=== PATIENT | female | born 1970 | race Hispanic/Latino ===

== ENCOUNTER 2019-04-16 19:44 | Emergency (ER) | payer SELFPAY ==
[2019-04-16 20:56] LABS: BASOPHILS % (AUTO) 0.7 % (0.0-5.0); EOSINOPHILS % (AUTO) 0.6 % (0.0-8.0); HEMATOCRIT 40.7 % (36-48); LYMPHOCYTES % (AUTO) 24.4 % (21.0-51.0); MEAN CORPUSCULAR HEMOGLOBIN 25.3 pg (27.0-33.0); MEAN CORPUSCULAR HGB CONC 32.1 g/dL (32.0-36.0); MONOCYTES % (AUTO) 5.8 % (3.0-13.0); NEUTROPHILS % (AUTO) 68.5 % (40.0-77.0); PLATELET COUNT (AUTO) 274 K/uL (130-400); RED BLOOD CELL COUNT(AUTO) 5.16 MIL/uL (4.00-5.50); RED CELL DISTRIBUTION WIDTH 16.5 % (11.0-15.5); WHITE BLOOD COUNT (AUTO) 12.3 K/uL (4.8-10.8)
[2019-04-16 21:17] LABS: CREATININE 0.7 mg/dL (0.5-1.5); POTASSIUM 3.8 mmol/L (3.5-5.1)
[2019-04-16 21:22] LABS: ALBUMIN 3.6 g/dL (3.5-5.0); BILIRUBIN,TOTAL 0.3 mg/dL (0.2-1.0); TOTAL PROTEIN, SERUM 8.4 g/dL (6.0-8.3)
[2019-04-16 22:15] LABS: APPEARANCE,URINE Clear (CLEAR); BILIRUBIN,URINE Negative (NEGATIVE); COLOR,URINE Yellow (YELLOW); GLUCOSE, URINE (UA) Negative (NEGATIVE); KETONES,URINE Negative (NEGATIVE); LEUKOCYTE ESTERASE ,URINE Negative (NEGATIVE); NITRATE,URINE Negative (NEGATIVE); OCCULT BLOOD,URINE Negative (NEGATIVE); PROTEIN,URINE POS 1+ mg/dL (NEGATIVE); UROBILINOGEN,URINE 0.2 mg/dL (0.2-1.0)
[2019-04-16] MEDS ORDERED: ONDANSETRON HCL 4 MG/2 ML VIAL ONE (22:17)
[2019-04-16] MEDS ORDERED: MORPHINE SULFATE 4 MG/1ML SYG ONE (22:17)
[2019-04-16 22:19] LABS: AMPHET/METH SCREEN,URINE NEGATIVE (NEGATIVE); BARBITURATE SCREEN, URINE NEGATIVE (NEGATIVE); BENZODIAZEPINES SCREEN,URINE NEGATIVE (NEGATIVE); CANNABINOID SCREEN,URINE NEGATIVE (NEGATIVE); COCAINE SCREEN,URINE NEGATIVE (NEGATIVE); OPIATE SCREEN,URINE NEGATIVE (NEGATIVE); PHENCYCLIDINE SCREEN,URINE NEGATIVE (NEGATIVE)
[2019-04-16 22:38] LABS: BACTERIA,URINE Few /HPF (None Seen); RBC,URINE 0-1 /HPF (0-1); WBC,URINE 0-1 /HPF (0-1)
== END 2019-04-16 23:10 | disposition home or self-care (01) ==
LOC: EDH 19:44
DX: G43.909 Migraine, unspecified, not intractable, without status migrainosus (principal); Z90.49 Acquired absence of other specified parts of digestive tract; Z98.890 Other specified postprocedural states
CPT/HCPCS: 36415; 70450; 80053; 80305; 81001; 82948; 85025; 93005; 96374; 96375; 99285; G0480; J2270; J2405

== ENCOUNTER 2019-04-19 12:36 | Observation (INO) | payer OTHER, SELFPAY ==
[2019-04-19 13:18] LABS: BASOPHILS % (AUTO) 0.8 % (0.0-5.0); EOSINOPHILS % (AUTO) 0.9 % (0.0-8.0); HEMATOCRIT 40.8 % (36-48); LYMPHOCYTES % (AUTO) 28.1 % (21.0-51.0); MEAN CORPUSCULAR HEMOGLOBIN 25.3 pg (27.0-33.0); MEAN CORPUSCULAR HGB CONC 32.6 g/dL (32.0-36.0); MEAN CORPUSCULAR VOLUME 77.8 fL (79-99); MONOCYTES % (AUTO) 5.2 % (3.0-13.0); PLATELET COUNT (AUTO) 297 K/uL (130-400); RED BLOOD CELL COUNT(AUTO) 5.24 MIL/uL (4.00-5.50); RED CELL DISTRIBUTION WIDTH 16.1 % (11.0-15.5); WHITE BLOOD COUNT (AUTO) 10.5 K/uL (4.8-10.8)
[2019-04-19 13:34] LABS: INR 0.92 (0.85-1.15); PARTIAL THROMBOPLASTIN TIME 31.1 SEC (26.3-35.5); PROTHROMBIN TIME 9.7 SEC (9.6-11.6)
[2019-04-19 13:47] LABS: CREATININE 0.7 mg/dL (0.5-1.5); POTASSIUM 3.1 mmol/L (3.5-5.1)
[2019-04-19 13:54] LABS: ALBUMIN 3.6 g/dL (3.5-5.0); BILIRUBIN,DIRECT 0.1 mg/dL (0.0-0.3); BILIRUBIN,TOTAL 0.4 mg/dL (0.2-1.0); TOTAL PROTEIN, SERUM 7.9 g/dL (6.0-8.3)
[2019-04-19] MEDS ORDERED: METOCLOPRAMIDE 10 MG/2 ML VIAL ONE (14:00)
[2019-04-19] MEDS ORDERED: DiphenhydrAMINE HCL 50 MG/ML VIAL ONE ×2 (14:00→16:50)
[2019-04-19] MEDS ORDERED: KETOROLAC TROMETHAMINE 30MG/ML ONE (14:01)
[2019-04-19] MEDS ORDERED: SODIUM CHLORIDE 0.9% 1000ML 1,000 ML IV ONE (14:01)
[2019-04-19 14:23] LABS: APPEARANCE,URINE Clear (CLEAR); BILIRUBIN,URINE Negative (NEGATIVE); COLOR,URINE Yellow (YELLOW); GLUCOSE, URINE (UA) Negative (NEGATIVE); KETONES,URINE Negative (NEGATIVE); LEUKOCYTE ESTERASE ,URINE Negative (NEGATIVE); NITRATE,URINE Negative (NEGATIVE); OCCULT BLOOD,URINE Negative (NEGATIVE); PROTEIN,URINE Negative (NEGATIVE); UROBILINOGEN,URINE 0.2 mg/dL (0.2-1.0)
[2019-04-19] MEDS ORDERED: POTASSIUM CHLORIDE 10% ELIXIR 20 MEQ/15 ML UDCUP ONE (14:25)
[2019-04-19 14:36] LABS: HCG,QUAL RESULT NEGATIVE (NEGATIVE)
[2019-04-19 15:12] LABS: AMPHET/METH SCREEN,URINE NEGATIVE (NEGATIVE); BARBITURATE SCREEN, URINE NEGATIVE (NEGATIVE); BENZODIAZEPINES SCREEN,URINE NEGATIVE (NEGATIVE); CANNABINOID SCREEN,URINE NEGATIVE (NEGATIVE); COCAINE SCREEN,URINE NEGATIVE (NEGATIVE); OPIATE SCREEN,URINE NEGATIVE (NEGATIVE); PHENCYCLIDINE SCREEN,URINE NEGATIVE (NEGATIVE)
[2019-04-19] MEDS ORDERED: IOHEXOL-350 75 ML VIAL IV ONE ×2 (15:47→16:24)
[2019-04-19] MEDS ORDERED: POTASSIUM CHLORIDE 20MEQ/100ML 100 ML IV PRN (16:45)
[2019-04-19] MEDS ORDERED: ACETAMINOPHEN-CODEINE 300/30MG TAB PO PRN (16:45)
[2019-04-19] MEDS ORDERED: POTASSIUM CHLORIDE 10% ELIXIR 20 MEQ/15 ML UDCUP PO PRN (16:45)
[2019-04-19] MEDS ORDERED: ORPHENADRINE CITRATE 30 MG/ML ML IM SCH (16:45)
[2019-04-19] MEDS ORDERED: POTASSIUM CHLORIDE 20 MEQ ERTAB PO PRN (16:45)
[2019-04-19] MEDS ORDERED: LIDOCAINE HCL-MPF 1% 2ML VIAL IVP PRN (16:45)
[2019-04-19] MEDS ORDERED: CYCLOBENZAPRINE HCL 10 MG TABLET PO PRN (16:45)
[2019-04-19] MEDS: TRAMADOL HCL 50 MG TABLET PO SCH ×2 (16:45→22:45)
[2019-04-19] MEDS ORDERED: HYDROCODONE/ACETAMINOPHEN 5/325 MG TAB PO PRN (16:45)
[2019-04-19] MEDS ORDERED: HYDRALAZINE HCL 20 MG/ML VIAL IV PRN (16:45)
[2019-04-19] MEDS ORDERED: ONDANSETRON HCL 4 MG/2 ML VIAL ONE (16:50)
[2019-04-19] MEDS ORDERED: LISINOPRIL 5 MG TABLET PO SCH (17:15)
[2019-04-19] MEDS ORDERED: CYCLOBENZAPRINE HCL 10 MG TABLET PO SCH (17:15)
[2019-04-19] MEDS ORDERED: DEXAMETHASONE 4 MG TAB PO SCH (17:15)
[2019-04-19] MEDS ORDERED: LISINOPRIL 5 MG TABLET ONE (18:07)
[2019-04-19] MEDS ORDERED: DEXAMETHASONE 4 MG TAB ONE (18:07)
[2019-04-19] MEDS ORDERED: ORPHENADRINE CITRATE 30 MG/ML ML ONE (18:08)
[2019-04-19] MEDS: CYCLOBENZAPRINE HCL 10 MG TABLET PO SCH (21:00)
[2019-04-19] MEDS: FAMOTIDINE 20MG TAB 20 MG TAB PO SCH (21:00)
[2019-04-19] MEDS ORDERED: FAMOTIDINE 20MG TAB 20 MG TAB ONE (21:50)
[2019-04-19] MEDS ORDERED: CYCLOBENZAPRINE HCL 10 MG TABLET ONE (21:51)
--- NOTE | 2019-04-20 01:10 | NUR ---
PM NOTE Received from ED. Report given by DESIRE Diaz. Awake, alert, and oriented x3. Denies any headache this item. Instructed on use of call light for any assistance, verbalized understanding. Sinus mechanism in 70s on telemetry monitoring.
[2019-04-20 02:20] VITALS: BP 119/69
[2019-04-20 03:00] VITALS: BP 112/62
[2019-04-20] MEDS: TRAMADOL HCL 50 MG TABLET PO SCH (04:40)
[2019-04-20 08:02] VITALS: BP 128/69
--- NOTE | 2019-04-20 08:30 | NUR ---
AM ASSESSMENT PT LAYING IN BED, HOB ELEVATED 30 DEGREES, RESTING. FAMILY @ BEDSIDE. A/O X 3. NO SOB. NO DISTRESS NOTED. DENIES CHEST PAIN OR DISCOMFORT. DENIES PALPITATIONS. TELE: SR 90s. DENIES N/V AND/OR DIARRHEA. DENIES HEADACHE. UP AD CASSIDY. INSTRUCTED TO CALL FOR ASSISTANCE. CALL TERESA W/IN REACH.
[2019-04-20] MEDS: FAMOTIDINE 20MG TAB 20 MG TAB PO SCH (08:43)
[2019-04-20] MEDS: CYCLOBENZAPRINE HCL 10 MG TABLET PO SCH (08:44)
[2019-04-20] MEDS ORDERED: LISINOPRIL 20 MG TABLET PO SCH (09:00)
[2019-04-20] MEDS ORDERED: ENOXAPARIN SODIUM 40 MG/0.4 ML SYRINGE SQ SCH (09:00)
[2019-04-20] MEDS ORDERED: GADODIAMIDE 10 MMOL/20 ML VIAL IV ONE (10:05)
[2019-04-20] MEDS ORDERED: LISI-613 PO (13:40)
[2019-04-20] MEDS ORDERED: IBUP-1493 PO (13:40)
--- NOTE | 2019-04-20 14:25 | NUR ---
DISCHARGE VERBAL & WRITTEN DISCHARGE INSTRUCTIONS REVIEWED & GIVEN TO PT. QUESTIONS ENCOURAGED & CLARIFIED. PROPER CARE & MGT OF HEADACHES REVIEWED. NEW PRESCRIBED MEDICATIONS REVIEWED. PRESCRIPTIONS X 2 GIVEN TO PT; SIGNED COPIES PLACED IN CHART. F/U APPT INFO REVIEWED. TELE NICOLE REMOVED. IV DISCONTINUED. PT & FAMILY TO GATHER PERSONAL BELONGINGS. WILL NOTIFY STAFF WHEN READY TO BE TAKEN TO PRIVATE VEHICLE.
--- NOTE | 2019-04-20 14:35 | NUR ---
DISCHARGE PT TAKEN TO PRIVATE VEHICLE VIA WC BY Isiah LUNDBERG PCP, ACCOMPANIED BY FAMILY. NO DISTRESS NOTED.
--- NOTE | 2019-04-20 15:03 | NUR ---
DC PLAN PATIENT DISCHARGED HOME ALREADY GONE NO NEEDS VERBALIZED BY NURSING STAFF. Addendum: 04/20/19 at 1504 by CAIO WHYTE RN CM Amended: Links added.
== END 2019-04-20 14:35 | disposition home or self-care (01) ==
LOC: EDH 12:36 → EDHIP 12:37 → INTOOBSV 12:37 → 2AH 04-20 00:46
PROVIDERS: ADMIT Internal Medicine; ATTEND Internal Medicine
DX: G43.909 Migraine, unspecified, not intractable, without status migrainosus (principal); E87.6 Hypokalemia; I10 Essential (primary) hypertension; E66.9 Obesity, unspecified; Z90.49 Acquired absence of other specified parts of digestive tract; Z79.899 Other long term (current) drug therapy; Z79.01 Long term (current) use of anticoagulants
CPT/HCPCS: 36415 ×2; 70450; 70496; 70498; 70553; 80048; 80076; 80305; 81003; 81025; 82550; 84132; 84484; 85025; 85610; 85730; 93005; 96372; 99284; A9579; G0378; J1200 ×2; J1650; J1885; J2360; J2405; J2765; J7030; J8540; Q9967 ×2